=== PATIENT | female | born 1975 | race African-American/Black ===

== ENCOUNTER 2021-07-16 06:55 | Emergency (ER) | payer OTHER ==
[~2021-07-16] VITALS: Ht 165.1 cm; Wt 137.0 kg
[2021-07-16] MEDS ORDERED: ONDANSETRON HCL 4MG/2ML INJ IV STA (07:38)
[2021-07-16] MEDS ORDERED: SODIUM CHLORIDE 0.9% 1,000 ML IV ONE (07:45)
[2021-07-16 08:31] LABS: HEMATOCRIT. 28.8 % (36.0-48.0); HEMOGLOBIN. 8.9 g/dL (12.0-16.0); MEAN CORPUSCULAR HEMOGLOBIN 20.5 pg (28.0-32.0); MEAN CORPUSCULAR VOLUME 65.9 fL (81.0-99.0); MEAN PLATELET VOLUME 7.3 fl (7.4-10.4); PLATELET 556 x1000/uL (130-400); RED BLOOD CELL COUNT 4.37 mill/uL (4.2-5.4); RED CELL DISTRIBUTION WIDTH 21.5 % (11.6-14.6)
[2021-07-16 08:38] LABS: CHLORIDE 107 mEq/L (98-107)
[2021-07-16 08:40] LABS: CLARITY URINE CLEAR (CLEAR); COLOR URINE YELLOW (YELLOW); KETONES URINE TRACE (NEGATIVE); LEUKOCYTE ESTERASE URINE 1+ (NEGATIVE); NITRITE URINE NEGATIVE (NEGATIVE); OCCULT BLOOD URINE 2+ (NEGATIVE); PROTEIN URINE TRACE (NEGATIVE); SPECIFIC GRAVITY URINE 1.019 (1.005-1.030)
[2021-07-16 08:54] LABS: HCG SCREEN NEGATIVE
[2021-07-16 10:00] LABS: PLATELET ESTIMATE INCREASED
[2021-07-16] MEDS ORDERED: ONDA4TAB5 PO (10:47)
[2021-07-16 11:09] VITALS: BP 175/87
== END 2021-07-16 11:10 | disposition home or self-care (01) ==
LOC: ER 07:48
DX: R10.30 Lower abdominal pain, unspecified (principal); R11.2 Nausea with vomiting, unspecified; I10 Essential (primary) hypertension; Z98.890 Other specified postprocedural states
CPT/HCPCS: 36415; 80053; 81003; 81025; 83690; 84703; 85025; 96361; 96374; 99283; J2405; J7030